=== PATIENT | female | born 1960 | race Caucasian/White ===

== ENCOUNTER 2020-03-07 08:30 | Emergency (ER) | payer BC ==
--- NOTE | 2020-03-07 09:02 | EDM.PDOC ---
ED HPI GENERAL MEDICAL PROBLEM - General Chief Complaint: Abdominal Pain Stated Complaint: n/v, abdominal pain Time Seen by Provider: 03/07/20 09:20 Source of Information: Reports: Patient History Limitations: Reports: No Limitations - History of Present Illness INITIAL COMMENTS - FREE TEXT/NARRATIVE: Idalia is a 59 yo female with PMH of hypertension, obesity, & CKD stage IV, who presents to the ED with c/o N/V and abdominal pain. She reports pain started around 0100 this morning and has worsened since. She reports she has vomited multiple times. Pain worse in LUQ. Rates pain 06/17. Active emesis at time of presentation. She reports she was feeling fine and had normal appetite yesterday. Last ate last evening. Reports some mild dysuria. No urinary frequency or urgency. Last BM was this morning. Reports it was soft. Denies any fever, chills, malaise, chest pain, hematemesis, bloody stools. Does report she feels short of breath. Is very anxious and tachypneic on presentation. Reports around 0100 this morning she was diaphoretic. Does not doctor regularly. Reports she has been out of her BP medications for some time now so has not been taking them. Onset: Today Onset Date: 03/07/20 Onset Time: 01:00 Duration: Constant, Getting Worse Location: Reports: Abdomen Quality: Reports: Ache, Sharp Severity: Severe Improves with: Reports: None Associated Symptoms: Reports: Diaphoresis, Loss of Appetite, Nausea/Vomiting, Shortness of Breath. Denies: Confusion, Chest Pain, Cough, cough w sputum, Fever/Chills, Headaches, Malaise, Syncope, Weakness Left Lower Abdomen Pain Score (Numeric/FACES): 10 - Related Data Allergies Allergy/AdvReac Type Severity Reaction Status Date / Time strawberry [[place]] Allergy Hives Verified 06/08/14 17:27 Home Meds: Home Meds Lisinopril 25 mg PO DAILY 06/08/14 [History] Multivitamin [Multi Vitamin Daily] 1 tab PO DAILY 06/08/14 [History] Omeprazole 20 mg PO DAILY 06/08/14 [History] Past Medical History Cardiovascular History: Reports: High Cholesterol, Hypertension, SOB on Exertion Gastrointestinal History: Reports: GERD Genitourinary History: Reports: Chronic Renal Insuffiency Musculoskeletal History: Reports: Arthritis - Past Surgical History Musculoskeletal Surgical History: Reports: Arthroscopic Knee Social & Family History - Family History Family Medical History: Noncontributory - Tobacco Use Smoking Status *Q: Never Smoker - Alcohol Use Alcohol Use History: No - Recreational Drug Use Recreational Drug Use: No - Living Situation & Occupation Living situation: Reports: Occupation: Unemployed ED ROS GENERAL - Review of Systems Review Of Systems: See Below Constitutional: Reports: Malaise, Fatigue, Diaphoresis, Decreased Appetite. Denies: Fever, Chills HEENT: Reports: No Symptoms Respiratory: Reports: Shortness of Breath. Denies: Wheezing, Pleuritic Chest Pain, Cough, Sputum, Hemoptysis Cardiovascular: Denies: Chest Pain, Edema, Lightheadedness, Palpitations, Syncope Endocrine: Reports: Fatigue GI/Abdominal: Reports: Abdominal Pain, Decreased Appetite, Nausea, Vomiting. Denies: Black Stool, Bloody Stool, Constipation, Diarrhea, Distension, Flatus, Hematemesis, Hematochezia, Melena : Reports: Dysuria. Denies: Frequency, Urgency Musculoskeletal: Reports: No Symptoms Skin: Reports: No Symptoms Neurological: Reports: No Symptoms. Denies: Confusion, Dizziness, Headache, Numbness, Syncope, Tingling, Weakness Psychiatric: Reports: Anxiety Hematologic/Lymphatic: Reports: No Symptoms Immunologic: Reports: No Symptoms ED EXAM, GI/ABD - Physical Exam Exam: See Below Exam Limited By: No Limitations General Appearance: Alert, WD/WN, Moderate Distress, Active Emesis Eyes: Bilateral: EOMI Throat/Mouth: Normal Inspection, Normal Lips, Normal Gums, Normal Oropharynx, Normal Voice, No Airway Compromise Head: Atraumatic, Normocephalic Neck: Normal Inspection, Supple, Non-Tender, Full Range of Motion Respiratory/Chest: No Respiratory Distress, Lungs Clear, Normal Breath Sounds, No Accessory Muscle Use, Chest Non-Tender Cardiovascular: Normal Peripheral Pulses, Regular Rate, Rhythm, No Edema, No Gallop, No JVD, No Murmur, No Rub GI/Abdominal Exam: Soft, No Distention, Tender (RUQ & LUQ), Abnormal Bowel Sounds (hypoactive) Back Exam: Normal Inspection, Full Range of Motion. No: CVA Tenderness (L), CVA Tenderness (R) Extremities: Normal Inspection, Normal Range of Motion, Non-Tender, Normal Capillary Refill, No Pedal Edema Neurological: Alert, Oriented, CN II-XII Intact, Normal Cognition, Normal Gait, Normal Reflexes, No Motor/Sensory Deficits Psychiatric: Anxious Skin Exam: Warm, Dry, Intact, Normal Color, No Rash Lymphatic: No Adenopathy Course - Vital Signs Last Recorded V/S: Last Vital Signs Temp 98.2 F 03/07/20 11:30 Pulse 85 03/07/20 11:30 Resp 18 03/07/20 11:30 BP 155/65 H 03/07/20 11:30 Pulse Ox 95 03/07/20 11:30 - Orders/Labs/Meds Orders: Active Orders 24 hr Category Date Time Status Abdomen Ltd [US] Stat Exams 03/07/20 09:43 Taken CULTURE URINE [RM] Stat Lab 03/07/20 08:54 Received Morphine Sulfate [Morphine] Med 03/07/20 10:32 Active 2 mg IVPUSH Q1H PRN Ondansetron [Zofran] Med 03/07/20 08:59 Active 4 mg IVPUSH Q6H PRN cefTRIAXone [Rocephin] Med 03/07/20 10:45 Active 1 gm IVPUSH Q24H Medication Orders Ceftriaxone Sodium (Rocephin) 1 gm IVPUSH Q24H LAURA Last Admin: 03/07/20 10:39 Dose: 1 gm Documented by: JOEL Morphine Sulfate (Morphine) 2 mg IVPUSH Q1H PRN PRN Reason: Pain Last Admin: 03/07/20 11:11 Dose: 2 mg Documented by: JOEL Ondansetron HCl (Zofran) 4 mg IVPUSH Q6H PRN PRN Reason: Nausea Last Admin: 03/07/20 09:09 Dose: 4 mg Documented by: TOMAS Labs: Laboratory Tests 03/07/20 03/07/20 03/07/20 Range/Units 08:54 09:15 09:15 WBC 8.4 (5.0-10.0) 10^3/uL RBC 4.82 (4.00-5.50) 10^6/uL Hgb 15.7 (12.0-16.0) g/dL Hct 45.9 (37.0-47.0) % MCV 95.2 H (82.0-94.0) fL MCH 32.6 H (27.0-32.0) pg MCHC 34.2 (33.0-38.0) g/dL RDW Coeff of [place]atum 13.1 (11.0-15.0) % Plt Count 197 (150-400) 10^3/uL Neut % (Auto) 82.4 (35-85) % Lymph % (Auto) 13.3 (10-55) % [place] % (Auto) 3.8 (0-16) % Eos % (Auto) 0.4 (0-5) % Baso % (Auto) 0.1 (0-3) % Neut # (Auto) 6.89 (1.80-7.00) 10^3/uL Lymph # (Auto) 1.11 (1.00-4.80) 10^3/uL [place] # (Auto) 0.32 (0.00-0.80) 10^3/uL Eos # (Auto) 0.03 (0.00-0.45) 10^3/uL Baso # (Auto) 0.01 10^3/uL PT 10.1 (9.7-12.3) SEC INR 1.00 (0.92-1.18) D-Dimer, Quantitative 4.22 H (0.00-0.50) Sodium (136-145) mEq/L Potassium (3.5-5.0) mEq/L Chloride (98-106) mEq/L Carbon Dioxide (21-32) mmol/L BUN (7-18) mg/dL Creatinine (0.6-1.0) mg/dL Est Cr Clr Drug Dosing mL/min Estimated GFR (MDRD) (>=60) mL/min Glucose (75-99) mg/dL Calcium (8.4-10.1) mg/dL Total Bilirubin (0.0-1.0) mg/dL AST (15-37) U/L ALT (12-78) U/L Alkaline Phosphatase (46-116) U/L Lactate Dehydrogenase (100-190) U/L Creatine Kinase (21-215) U/L Troponin I (0.00-0.06) ng/mL C-Reactive Protein (0.2-0.8) mg/dL Total Protein (6.4-8.2) g/dL Albumin (3.4-5.0) g/dL Amylase (25-115) U/L Lipase (73-393) U/L Urine Color Yellow (YELLOW) Urine Appearance Clear (CLEAR) Urine pH 6.5 (4.5-8.0) Ur Specific [place] 1.020 (1.003-1.020) Urine Protein 30 H (NEGATIVE) mg/dL Urine Glucose (UA) Negative (NEGATIVE) mg/dL Urine Ketones Negative (NEGATIVE) mg/dL Urine Occult Blood Trace-intact H (NEGATIVE) Urine Nitrite Negative (NEGATIVE) Urine Bilirubin Small H (NEGATIVE) Urine Urobilinogen 0.2 (0.2-1.0) EU/dL Ur Leukocyte Esterase Small H (NEGATIVE) Urine RBC Not seen (0-5) /HPF Urine WBC 10-20 H (0-5) /HPF Ur Epithelial Cells Many H (NOT SEEN) /HPF Urine Bacteria Few H (NOT SEEN) /HPF SARS-CoV-2 RNA (RT-PCR) (NEGATIVE) 03/07/20 03/07/20 03/07/20 Range/Units 09:15 09:15 09:45 WBC (5.0-10.0) 10^3/uL RBC (4.00-5.50) 10^6/uL Hgb (12.0-16.0) g/dL Hct (37.0-47.0) % MCV (82.0-94.0) fL MCH (27.0-32.0) pg MCHC (33.0-38.0) g/dL RDW Coeff of Tatum (11.0-15.0) % Plt Count (150-400) 10^3/uL Neut % (Auto) (35-85) % Lymph % (Auto) (10-55) % [place] % (Auto) (0-16) % Eos % (Auto) (0-5) % Baso % (Auto) (0-3) % Neut # (Auto) (1.80-7.00) 10^3/uL Lymph # (Auto) (1.00-4.80) 10^3/uL [place] # (Auto) (0.00-0.80) 10^3/uL Eos # (Auto) (0.00-0.45) 10^3/uL Baso # (Auto) 10^3/uL PT (9.7-12.3) SEC INR (0.92-1.18) D-Dimer, Quantitative (0.00-0.50) Sodium 139 (136-145) mEq/L Potassium 3.6 (3.5-5.0) mEq/L Chloride 105 (98-106) mEq/L Carbon Dioxide 21 (21-32) mmol/L BUN 22 H (7-18) mg/dL Creatinine 1.8 H (0.6-1.0) mg/dL Est Cr Clr Drug Dosing 31.92 mL/min Estimated GFR (MDRD) 29 L (>=60) mL/min Glucose 191 H D (75-99) mg/dL Calcium 9.2 (8.4-10.1) mg/dL Total Bilirubin 3.2 H (0.0-1.0) mg/dL AST 246 H (15-37) U/L ALT 131 H (12-78) U/L Alkaline Phosphatase 168 H (46-116) U/L Lactate Dehydrogenase 378 H (100-190) U/L Creatine Kinase 102 (21-215) U/L Troponin I < 0.017 (0.00-0.06) ng/mL C-Reactive Protein 0.7 (0.2-0.8) mg/dL Total Protein 7.1 (6.4-8.2) g/dL Albumin 3.4 (3.4-5.0) g/dL Amylase 1249 H (25-115) U/L Lipase > 82110 H (73-393) U/L Urine Color (YELLOW) Urine Appearance (CLEAR) Urine pH (4.5-8.0) Ur Specific [place] (1.003-1.020) Urine Protein (NEGATIVE) mg/dL Urine Glucose (UA) (NEGATIVE) mg/dL Urine Ketones (NEGATIVE) mg/dL Urine Occult Blood (NEGATIVE) Urine Nitrite (NEGATIVE) Urine Bilirubin (NEGATIVE) Urine Urobilinogen (0.2-1.0) EU/dL Ur Leukocyte Esterase (NEGATIVE) Urine RBC (0-5) /HPF Urine WBC (0-5) /HPF Ur Epithelial Cells (NOT SEEN) /HPF Urine Bacteria (NOT SEEN) /HPF SARS-CoV-2 RNA (RT-PCR) Negative (NEGATIVE) Meds: Medications Generic Name Dose Route Start Last Admin Trade Name Freq PRN Reason Stop Dose Admin Ceftriaxone Sodium 1 gm 03/07/20 10:45 03/07/20 10:39 Rocephin IVPUSH 1 gm Q24H LAUAR Administration Morphine Sulfate 2 mg 03/07/20 10:32 03/07/20 11:11 Morphine IVPUSH 2 mg Q1H PRN Administration Pain Ondansetron HCl 4 mg 03/07/20 08:59 03/07/20 09:09 Zofran IVPUSH 4 mg Q6H PRN Administration Nausea Discontinued Medications Generic Name Dose Route Start Last Admin Trade Name Amelie PRN Reason Stop Dose Admin Fentanyl 50 mcg 03/07/20 09:26 03/07/20 09:31 Sublimaze IVPUSH 03/07/20 09:27 50 mcg ONETIME ONE Administration Fentanyl 50 mcg 03/07/20 12:08 03/07/20 12:16 Sublimaze IVPUSH 03/07/20 12:09 50 mcg ONETIME ONE Administration Lactated Ringer's 1,000 mls @ 999 mls/hr 03/07/20 08:59 03/07/20 09:09 Ringers, Lactated IV 03/07/20 09:59 999 mls/hr .BOLUS ONE Administration Metronidazole 500 mg/ Premix 100 mls @ 100 mls/hr 03/07/20 11:01 03/07/20 11:18 IV 03/07/20 12:00 100 mls/hr ONETIME ONE Administration Promethazine HCl 25 mg/ Sodium 51 mls @ 100 mls/hr 03/07/20 12:06 03/07/20 12:21 Chloride IV 03/07/20 12:36 100 mls/hr STAT STA Administration Prochlorperazine Maleate 10 mg 03/07/20 11:11 03/07/20 11:22 Compazine PO 03/07/20 11:12 10 mg ONETIME ONE Administration - Re-Assessments/Exams Free Text/Narrative Re-Assessment/Exam: 03/07/20 10:00 Discussed lab results with patient. Discussed need to proceed with US. 03/07/20 10:47 Spoke with radiologist re: US results. Does appear to have acute cholecystitis with stone obstructing bile duct. Bile duct dilated. 03/07/20 10:56 Contacted [facility] one call. Consulted with hospitalist Dr. Calhoun who accepted the patient for transfer. 03/07/20 11:05 Paged out for ALS transfer to [facility]. 03/07/20 11:27 Patient will be going to room 330 at [facility]. [facility] will be providing ALS transfer. 03/07/20 11:42 Discussed risks and benefits of transfer with patent. Risks of transfer include worsening of condition, pain, , MVA enroute. Benefits of transfer include higher level of care with surgical/GI speciality. Risks of nontransfer include worsening of condition, sepsis, , and no surgical consultation. Benefits of nontransfer include convenience. Patient verbalized understanding and was agreeable to transfer. Departure - Departure Time of Disposition: 12:38 Disposition: DC/Tfer to [facility] 02 Condition: Fair Clinical Impression: Cholelithiasis and acute cholecystitis with obstruction Pancreatitis Qualifiers: Chronicity: acute Pancreatitis type: biliary Acute pancreatitis complication: unspecified Qualified Code(s): K85.10 - Biliary acute pancreatitis without necrosis or infection - Discharge Information *PRESCRIPTION DRUG MONITORING PROGRAM REVIEWED*: Not Applicable *COPY OF PRESCRIPTION DRUG MONITORING REPORT IN PATIENT VALENCIA: Not Applicable Referrals: Tequila Rutledge FLY SETTER [Primary Care Provider] - Forms: ED Department Discharge Sepsis Event Note (ED) - Evaluation Sepsis Screening Result: Possible Sepsis Risk - Focused Exam Vital Signs: Vital Signs Temp Pulse Resp BP Pulse Ox 03/07/20 11:30 98.2 F 85 18 155/65 H 95 03/07/20 08:35 97.0 F 93 22 H 149/82 H 98 - Problem List & Annotations (1) Cholelithiasis and acute cholecystitis with obstruction SNOMED Code(s): 785747129 Code(s): K80.01 - CALCULUS OF GALLBLADDER W ACUTE CHOLECYSTITIS W OBSTRUCTION Status: Acute Current Visit: Yes (2) Pancreatitis SNOMED Code(s): 79978653 Code(s): K85.90 - ACUTE PANCREATITIS WITHOUT NECROSIS OR INFECTION, UNSP Status: Acute Current Visit: Yes Qualifiers: Chronicity: acute Pancreatitis type: biliary Acute pancreatitis complication: unspecified Qualified Code(s): K85.10 - Biliary acute pancreatitis without necrosis or infection (3) Chronic kidney disease (CKD) SNOMED Code(s): 812719191 Code(s): N18.9 - CHRONIC KIDNEY DISEASE, UNSPECIFIED Status: Acute Current Visit: Yes Qualifiers: Chronic kidney disease stage: stage 4 (severe) Qualified Code(s): N18.4 - Chronic kidney disease, stage 4 (severe) - Problem List Review Problem List Initiated/Reviewed/Updated: Yes - My Orders Last 24 Hours: My Active Orders 03/07/20 08:54 CULTURE URINE [RM] Stat 03/07/20 08:59 Ondansetron [Zofran] 4 mg IVPUSH Q6H PRN 03/07/20 09:43 Abdomen Ltd [US] Stat 03/07/20 10:32 Morphine Sulfate [Morphine] 2 mg IVPUSH Q1H PRN 03/07/20 10:45 cefTRIAXone [Rocephin] 1 gm IVPUSH Q24H - Assessment/Plan Last 24 Hours: My Active Orders 03/07/20 08:54 CULTURE URINE [RM] Stat 03/07/20 08:59 Ondansetron [Zofran] 4 mg IVPUSH Q6H PRN 03/07/20 09:43 Abdomen Ltd [US] Stat 03/07/20 10:32 Morphine Sulfate [Morphine] 2 mg IVPUSH Q1H PRN 03/07/20 10:45 cefTRIAXone [Rocephin] 1 gm IVPUSH Q24H Assessment:: Cholelithiasis and acute cholecystitis with obstruction Pancreatitis CKD Plan: 59 yo female presents to the ED with c/o N/V and abdominal pain starting at 0100. Lab work significant for elevated bilirubin, liver and pancreatic enzymes. UA questionable +. D-dimer was also collected given patients SOB. D-Dimer elevated but unable to proceed with CT angio given CKD, creatinine 1.8. O2 sats 98% on RA. Patients breathing did slow once pain managed. Lab work otherwise stable. Limited abdominal US reveals acute cholecystitis with stone obstructing bile duct. Consulted with [facility] hospitalist Dr. Calhoun who accepted the patient for transfer. Patient given 1 L LR bolus, 1 G Rocephin IV, 500 mg Flagyl IV, 50 mcg fentanyl IV x2, 2 mg morphine IV, 10 mg Compazine PO, 4 mg Zofran, and 25 mg Phenergan. Pain and nausea did improve some with medications. Patient continued to have active emesis/dry heaving throughout stay. No improvement in pain with morphine. Fentanyl did improve pain some. VSS throughout ED stay. Patient will be transferred to [facility] room 330 via [facility]. Patient discharged from facility in satisfactory condition.
[2020-03-07] MEDS: Lactated Ringers 1,000 ML IV ONE (09:09)
[2020-03-07] MEDS: Ondansetron 4 MG/2 ML SDV IVPUSH PRN (09:09)
[2020-03-07] MEDS: fentaNYL 100 MCG/2 ML SDV IVPUSH ONE ×2 (09:31→12:16)
[2020-03-07 09:33] LABS: CHLORIDE,CL 105 mEq/L (98-106); SODIUM,NA 139 mEq/L (136-145)
[2020-03-07] MEDS: cefTRIAXone 1 GM Vial IVPUSH SCH (10:39)
[2020-03-07] MEDS: Morphine 2 MG/ML Syringe IVPUSH PRN (11:11)
[2020-03-07] MEDS: metroNIDAZOLE/Normal Saline 500 MG in Premix Bag 1 BAG IV ONE (11:18)
[2020-03-07] MEDS: Prochlorperazine 10 MG Tab PO ONE (11:22)
[2020-03-07] MEDS: Promethazine 25 MG in Sodium Chloride 0.9% 50 ML IV STA (12:21)
== END 2020-03-07 12:39 ==
LOC: CC.ED 08:30
DX: K85.10 Biliary acute pancreatitis without necrosis or infection (principal); K80.01 Calculus of gallbladder with acute cholecystitis with obstruction; I12.9 Hypertensive chronic kidney disease with stage 1 through stage 4 chronic kidney disease, or unspecified chronic kidney disease; N18.4 Chronic kidney disease, stage 4 (severe); K21.9 Gastro-esophageal reflux disease without esophagitis; E66.9 Obesity, unspecified; Z68.42 Body mass index [BMI] 45.0-49.9, adult; Z20.828 Contact with and (suspected) exposure to other viral communicable diseases; Z91.018 Allergy to other foods; Z79.899 Other long term (current) drug therapy
CPT/HCPCS: 36415; 76705; 80053; 81001; 82150; 82550; 83615; 83690; 84484; 85025; 85379; 85610; 86140; 87086; 87635; 93005; 96361; 96365; 96375; 96376; 99285; J0696; J2270; J2405; J2550; J3010; J3490; J7050; J7120; Q0164; U0002